=== PATIENT | male | born 1940 | race Caucasian/White ===

== ENCOUNTER 2016-10-12 15:27 | Emergency (ER) | payer OTHER ==
[~2016-10-12] VITALS: Ht 177.8 cm; Wt 181.4 kg
[2016-10-12 15:44] VITALS: BP 0/0
== END 2016-10-12 15:37 | disposition expired ==
LOC: ED 15:27
DX: I46.9 Cardiac arrest, cause unspecified (principal)
CPT/HCPCS: J0171